=== PATIENT | female | born 1995 | race Caucasian/White ===

== ENCOUNTER 2017-11-03 10:45 | Emergency (ER) | payer OTHER ==
[~2017-11-03] VITALS: Ht 167.6 cm; Wt 88.5 kg
[2017-11-03] MEDS ORDERED: VASOTEC10 MG PO (11:00)
[2017-11-03] MEDS ORDERED: CYMBALTA20 MG PO (11:00)
[2017-11-03 11:01] LABS: URINE BILIRUBIN NEGATIVE (Negative); URINE BLOOD NEGATIVE (Negative); URINE CLARITY CLEAR; URINE COLOR YELLOW; URINE GLUCOSE-RANDOM NEGATIVE (Negative); URINE KETONES NEGATIVE (Negative); URINE PROTEIN NEGATIVE (Negative); URINE SPECIFIC GRAVITY 1.015 (1.005-1.030); URINE UROBILINOGEN 0.2 E.U./dl (0.2-1.0)
[2017-11-03 11:04] LABS: URINE LEUKOCYTES-REFLEX 3+ (Negative); URINE NITRITE-REFLEX POSITIVE (Negative)
[2017-11-03 11:17] LABS: CASTS None Seen /LPF (None Seen); CRYSTALS None Seen /LPF (None Seen); MUCUS None Seen strn/LPF (None Seen); SQUAMOUS 4-10 Moderate /LPF (0-3); URINE RBC 0-2 Rare /HPF (0-2); URINE WBC-REFLEX 6-15 Few /HPF (0-5)
[2017-11-03 11:49] LABS: ABSOLUTE BASOPHILS 0.1 thou/uL (0.0-0.2); ABSOLUTE EOSINOPHILS 0.3 thou/uL (0.0-0.7); ABSOLUTE LYMPHOCYTES 1.9 thou/uL (0.8-5.3); ABSOLUTE MONOCYTES 0.4 thou/uL (0.0-1.2); ABSOLUTE NEUTROPHILS 4.3 thou/uL (1.6-8.1); BASOPHILS 0.9 %; EOSINOPHILS 4.7 %; HEMATOCRIT 39.5 % (37.0-47.0); HEMOGLOBIN 12.8 gm/dL (12.0-15.0); LYMPHOCYTES 27.3 %; MCHC 32.4 g/dL (28.0-37.0); MCV 86.6 fL (80.0-100.0); MONOCYTES 5.9 %; MPV 9.8 fl. (7.2-11.1); NUCLEATED RBCS 0 /100WBC; PLATELET COUNT* 250 thou/uL (150-400); POLYS 61.2 %; RBC 4.56 mil/uL (4.20-5.00); RDW-CV 14.8 % (10.5-14.5)
[2017-11-03 11:58] LABS: ANION GAP 4 mmol/L (7-16); BUN 8 mg/dL (7-18); CALCIUM 8.3 mg/dL (8.5-10.1); CHLORIDE 107 mmol/L (98-107); CO2 27 mmol/L (21-32); CREATININE 0.6 mg/dL (0.6-1.3); GLUCOSE 87 mg/dL (70-99); POTASSIUM 4.1 mmol/L (3.5-5.1); SODIUM 138 mmol/L (136-145)
[2017-11-03 12:09] LABS: ALBUMIN 3.5 g/dL (3.4-5.0); ALKALINE PHOSPHATASE 72 U/L (46-116); LIPASE 210 U/L (73-393); NT-PRO BRAIN NAT PEPTIDE 66 pg/mL (<300); SGOT 13 U/L (15-37); SGPT 18 U/L (30-65); TOTAL BILIRUBIN 0.2 mg/dL (<0.1-1.0); TROPONIN-I LEVEL <0.06 ng/mL (<0.06)
[2017-11-03] MEDS ORDERED: ZOFRAN ODT4 MG SUBLING (12:28)
[2017-11-03 14:12] VITALS: BP 110/55
--- NOTE | 2017-11-03 14:32 | EKG ---
[place] [address] ELECTROCARDIOGRAM REPORT Name: GERSON JIMENES Room: [facility]#: [id number] Admission: 11/03/17 Attend Phys: Discharge: 11/03/17 Date of : [birth year] Report #: [id number] THIS REPORT FOR: //name// [facility] ED Test Date: 2017-11-03 Test Time: 10:53:43 Pat Name: GERSON JIMENES Department: Room: Gender: F Audiovisual Lead Technician: : 1995 Requested By: Kar Middleton Order Number: [id number] MD: Rodrigo Mcclendon Measurements Intervals [place] Rate: 73 P: 11 AL: 113 QRS: 45 QRSD: 88 T: 21 QT: 371 QTc: 409 Interpretive Statements Sinus rhythm Borderline short [place] interval RSR' in V1 or V2, right VCD or RVH No previous ECG available for comparison Electronically Signed On 11-03-2017 14:32:21 CDT by Rodrigo Mcclendon [email or web address] <ELECTRONICALLY SIGNED> By: Rodrigo Mcclendon MD, [facility] 11/03/17 1432 1053 1053 Rodrigo Mcclendon MD, [facility] /EPI
== END 2017-11-03 14:16 | disposition home or self-care (01) ==
LOC: M.ERS 10:45
PROVIDERS: Family Medicine
DX: R11.2 Nausea with vomiting, unspecified (principal); R07.89 Other chest pain; F17.210 Nicotine dependence, cigarettes, uncomplicated; Z88.1 Allergy status to other antibiotic agents